=== PATIENT | female | born 1980 | race Caucasian/White ===

== ENCOUNTER 2022-02-09 16:30 | Emergency (ER) | payer OTHER ==
[~2022-02-09] VITALS: Ht 160 cm; Wt 79.4 kg
[2022-02-09 16:38] VITALS: BP_SYST 108
[2022-02-09] MEDS ORDERED: NAPR-688 PO (17:22)
[2022-02-09] MEDS ORDERED: CYCL10TA24 PO (17:22)
== END 2022-02-09 17:38 | disposition home or self-care (01) ==
LOC: SED 16:30
DX: M54.2 Cervicalgia (principal); R07.89 Other chest pain; M54.9 Dorsalgia, unspecified; Z88.8 Allergy status to other drugs, medicaments and biological substances; Z79.899 Other long term (current) drug therapy; V49.49XA Driver injured in collision with other motor vehicles in traffic accident, initial encounter; Y93.89 Activity, other specified; Y92.89 Other specified places as the place of occurrence of the external cause; Y99.8 Other external cause status
CPT/HCPCS: 99283